=== PATIENT | female | born 1990 | race African-American/Black ===

== ENCOUNTER 2016-08-15 10:44 | Outpatient (CLI) | payer MEDICAID ==
[2016-08-15] MEDS ORDERED: LACTATED RINGERS 500 ML IV ONE (10:47)
[2016-08-15 11:29] VITALS: BP 101/62
== END 2016-08-15 11:33 | disposition home or self-care (01) ==
LOC: TRG 10:44
PROVIDERS: ATTEND Obstetrics & Gynecology
DX: O47.03 False labor before 37 completed weeks of gestation, third trimester (principal); Z3A.36 36 weeks gestation of pregnancy
CPT/HCPCS: 59025; J7120

== ENCOUNTER 2016-09-04 10:26 | Inpatient (IN) | payer MEDICAID ==
[2016-09-04 11:28] LABS: Hematocrit 36.7 % (30.3-42.9); Hemoglobin 11.4 gm/dl (10.1-14.3); Mean Corpuscular HGB Conc 31 % (30-34); Mean Corpuscular Volume 79 fl (79-97); Platelet Count 202 K/mm3 (140-440); Red Blood Count 4.68 M/mm3 (3.65-5.03); White Blood Count 9.4 K/mm3 (4.5-11.0)
[2016-09-04] MEDS ORDERED: FLUARIX QUAD 2016-2017(36 MOS+) IM ONE (11:28)
[2016-09-04] MEDS ORDERED: BRETHINE IVP PRN (11:39)
[2016-09-04] MEDS ORDERED: ZOFRAN IV PRN (11:39)
[2016-09-04] MEDS ORDERED: XYLOCAINE 2% INFILTRATI ONE (11:39)
[2016-09-04] MEDS ORDERED: PHENERGAN PO PRN (11:39)
[2016-09-04] MEDS ORDERED: BRETHINE SUB-Q PRN (11:39)
[2016-09-04] MEDS ORDERED: ePHEDrine SULFATE IV PRN ×2 (11:39→19:14)
[2016-09-04] MEDS ORDERED: MINERAL OIL PO PRN (11:39)
[2016-09-04] MEDS ORDERED: NARCAN 0.4 MG/1 ML IV PRN (11:39)
[2016-09-04 11:45] LABS: Mean Corpuscular Hemoglobin 24 pg (28-32); Red Cell Distribution Width 21.2 % (13.2-15.2)
[2016-09-04] MEDS ORDERED: PITOCin/NS 30 UNIT/500ML 30 UNITS/500 ML BAG IV SCH (12:00)
[2016-09-04] MEDS ORDERED: PITOCin/NS 20 UNIT/1000ML DRIP 20 UNITS/1,000 ML BAG IV SCH (12:00)
--- NOTE | 2016-09-04 12:44 | History and Physical Report ---
History of Present Illness Date of examination: 09/04/16 Date of admission: 09/04/16 11:38 Chief complaint: leaking clear fluid since this am at 6 am History of present illness: This is a 26 yo at 38+6 weeks came into l and d for leaking grossly ruptured. course Rubella non imm anemia -on iron tabs s<d 13% 1% femur lag nl fluid marginal cord insertion labs; O+ antib neg h/h 10.4/33.5 pap nl rubleea non imm rpr neg hiv neg hep neg hsv2 neg plt 257 sickle nuris neg chlam neg msafp too late h/h 9.6/31.6 DM 118 US 06/06/16 seaman EGA 26 vertex anterior grade 2 nl anatomy US 12/02/17 seaman EGA 34 EFW 1825 vertex anterior placenta RPR NR nuris neg chlam neg BS neg US 08/22/16 seaman EGa 37 weeks EFW 2481 11% SHELIA 8.79 BPP 8/8 Past History Past Medical History: no pertinent history Past Surgical History: no surgical history Social history: single, . denies: smoking, alcohol abuse, prescription drug abuse - Obstetrical History Expected Date of Delivery: 09/12/16 Actual Gestation: 38 Week(s) 6 Day(s) : 1 Para: 0 Hx # Term Pregnancies: 0 Number of Pregnancies: 0 Spontaneous Abortions: 0 Induced : 0 Number of Living Children: 0 Medications and Allergies Allergies Allergy/AdvReac Type Severity Reaction Status Date / Time No Known Allergies Allergy Verified 08/24/16 15:22 Active Meds: Active Medications Fentanyl (Sublimaze) 100 mcg IV Q2H PRN PRN Reason: Labor Pain Lactated Ringer's (Lactated Ringers) 1,000 mls @ 125 mls/hr IV DIRECT PAULA Oxytocin/Sodium Chloride (Pitocin/Ns 20 Unit/1000ml Drip) 20 units in 1,000 mls @ 125 mls/hr IV DIRECT PAULA Oxytocin/Sodium Chloride (Pitocin/Ns 30 Unit/500ml) 30 units in 500 mls @ 1 mls /hr IV TITR PAULA; 1 MILLIUNITS/MIN PRN Reason: Protocol Oxytocin/Sodium Chloride (Pitocin/Ns 30 Unit/500ml) 30 units in 500 mls @ 0 mls /hr IV TITR PAULA; As Directed PRN Reason: Protocol Mineral Oil (Mineral Oil) 30 ml PO QHS PRN PRN Reason: Constipation Naloxone HCl (Narcan 0.4 Mg/1 Ml) 0.1 mg IV Q2MIN PRN PRN Reason: Res Rate </= 8 or 02 SAT < 92% Ondansetron HCl (Zofran) 4 mg IV Q8H PRN PRN Reason: Nausea And Vomiting Promethazine HCl (Phenergan) 25 mg PO Q6H PRN PRN Reason: Nausea And Vomiting Review of Systems All systems: negative Breasts: deferred Genitourinary: deferred, leakage of fluid, no vaginal bleeding, no pelvic pain Rectal Exam: deferred - Vital Signs Vital signs: Vital Signs Pulse BP 83 113/65 09/04/16 10:43 09/04/16 10:43 Temp Pulse Resp BP Pulse Ox 98.9 F 88 18 107/65 09/04/16 10:44 09/04/16 12:25 09/04/16 10:44 09/04/16 12:25 - Physical Exam Breasts: Positive: normal Cardiovascular: Regular rate, Normal S1, Normal S2, No murmurs Lungs: Positive: Clear to auscultation, Normal air movement Abdomen: Positive: normal appearance, soft, normal bowel sounds Genitourinary (Female): Positive: normal external genitalia, normal perenium Vulva: both: normal Vagina: Positive: normal moisture, ulceration Cervix: Negative: lesion Uterus: Positive: normal size, normal contour Anus/Rectum: Positive: normal perianal skin, heme negative Extremities: Positive: normal Deep Tendon Reflex Grade: Normal +2 - Obstetrical Uterine Contraction Monitor Mode: Palpation Cervical Dilatation: 3 Cervical Effacement Percentage: 70 station: -2 Uterine Contraction Frequency (min): q5min Uterine Contraction Pattern: Regular Uterine Tone Measurement Phase: Contraction Uterine Contraction Intensity: Mild Results Result Diagrams: 09/04/16 11:00 Abnormal lab results 09/04/16 Range/Units 11:00 MCH 24 L (28-32) pg RDW 21.2 H (13.2-15.2) % All other labs normal. Assessment and Plan A/P HD#1 SROM clear at 6 am admit IVF labs consider augmentation with pitocin expect vaginal delivery
[2016-09-04] MEDS: LACTATED RINGERS 1,000 ML IV SCH ×3 (12:48→19:42)
[2016-09-04] MEDS: PITOCin/NS 30 UNIT/500ML 30 UNITS/500 ML BAG IV SCH ×4 (12:53→14:00)
[2016-09-04] MEDS: SUBLIMAZE IV PRN ×2 (15:26→18:18)
--- NOTE | 2016-09-04 19:14 | Anesthesia Consultation ---
Anesthesia Consult and Med Hx Date of service: 09/04/16 - Airway Anesthetic Teeth Evaluation: Good ROM Head & Neck: Adequate Mental/Hyoid Distance: Adequate Mallampati Class: Class II Intubation Access Assessment: Probably Good - Pre-Operative Health Status ASA Pre-Surgery Classification: ASA2 Proposed Anesthetic Plan: Epidural, Spinal - Pulmonary Hx Asthma: No COPD: No Hx Pneumonia: No - Cardiovascular System Hx Hypertension: No - Central Nervous System Hx Seizures: No Hx Psychiatric Problems: No - Endocrine Hx Renal Disease: No Hx End Stage Renal Disease: No Hx Hypothyroidism: No Hx Hyperthyroidism: No - Hematic Hx Anemia: Yes Hx Sickle Cell Disease: No - Other Systems Hx Alcohol Use: No
[2016-09-04] MEDS ORDERED: fentaNYL-BUPIV 2 MCG/ML-0.125% 200 MCG/100 ML BAG EPIDURAL SCH (20:00)
[2016-09-05] MEDS ORDERED: XYLOCAINE 2% INFILTRATI ONE (01:25)
--- NOTE | 2016-09-05 02:15 | Procedure Note ---
OB Delivery Note - Delivery Date of Delivery: 09/05/16 Surgeon: JANET BARCENAS Estimated blood loss: 500cc - Vaginal Delivery presentation: vertex Delivery position: OA Delivery monitor: external FHT, external uterine Route of delivery: Delivery placenta: spontaneous Delivery cord: 3 umbilical vessels Episiotomy: none Delivery laceration: 2nd degree, vaginal side wall Delivery repair: vicryl (2-0 and 3-0) Anesthesia: epidural Delivery comments: Patient was noted to be c/c/+1 and commenced to pushing. She delivered viable female at 0126 5 pounds and 3 oz in oa presentation. 2356 g. The cord was cut and clamped. The orophayrnx and nasopharynx suctioned and placed on mothers chest. The placenta delivered intact small with 3 vessel cord at 0129 . A 2nd degreee laceration repaired with 2-o vicryl in usual fashion and side wall wAs repaired with 3-0 running stitch. 500 ml blood loss. Patient tolerated procedure well. 1% lidocaine used 6cc. all lap and needle counts correct x2. - Infant A at 1 minute: 8 at 5 minutes: 9 Gender: Female
[2016-09-05] MEDS ORDERED: MILK OF MAGNESIA PO PRN (02:16)
[2016-09-05] MEDS ORDERED: TYLENOL PO PRN (02:16)
[2016-09-05] MEDS ORDERED: DERMOPLAST TP PRN (02:16)
[2016-09-05] MEDS ORDERED: TUCKS PAD TP PRN (02:16)
[2016-09-05] MEDS ORDERED: PERCOCET 5/325 PO PRN (02:16)
[2016-09-05] MEDS ORDERED: ZOFRAN IV PRN (02:16)
[2016-09-05] MEDS ORDERED: PHENERGAN PO PRN (02:16)
[2016-09-05] MEDS ORDERED: DULCOLAX PR PRN (02:16)
[2016-09-05] MEDS ORDERED: LANSINOH TP PRN (02:16)
[2016-09-05] MEDS ORDERED: BENADRYL PO PRN (02:16)
[2016-09-05] MEDS ORDERED: ANUCORT-HC PR PRN (02:16)
[2016-09-05] MEDS ORDERED: PHENERGAN PR PRN (02:16)
[2016-09-05] MEDS ORDERED: PITOCin/NS 20 UNIT/1000ML DRIP 20 UNITS/1,000 ML BAG IV SCH (03:00)
[2016-09-05] MEDS ORDERED: SODIUM CHLORIDE FLUSH SYRINGE 10 ML IV NR (03:00)
[2016-09-05] MEDS: SENOKOT S PO SCH (05:56)
[2016-09-05] MEDS: NORCO 5/325 PO PRN ×2 (08:54→21:58)
[2016-09-05] MEDS ORDERED: PRENATAL VITAMIN PO SCH (10:00)
[2016-09-05] MEDS: COLACE PO SCH ×2 (10:29→21:57)
[2016-09-05] MEDS: MOTRIN PO SCH ×2 (12:31→17:46)
[2016-09-05 14:38] LABS: Hematocrit 27.3 % (30.3-42.9); Hemoglobin 8.7 gm/dl (10.1-14.3)
[2016-09-06] MEDS: MOTRIN PO SCH ×4 (00:20→18:40)
[2016-09-06] MEDS ORDERED: M-M-R II VACCINE SUB-Q ONE (06:00)
[2016-09-06] MEDS ORDERED: BOOSTRIX IM ONE (06:00)
[2016-09-06] MEDS: SENOKOT S PO SCH ×2 (07:28→23:18)
--- NOTE | 2016-09-06 08:18 | Progress Note ---
Assessment and Plan A: PPD#1 s/p at term; Asymptomatic anemia P: Routine care. Anticipate discharge tomorrow. Subjective - Subjective Date of service: 09/06/16 Principal diagnosis: s/p at term Interval history: No overnight events. Patient reports: appetite normal, voiding normally, pain well controlled, ambulating normally, no nauseated [place]: doing well Objective - Vital Signs Latest vital signs: Vital Signs Temp Pulse Pulse Resp BP BP 09/06/16 00:20 18 09/06/16 00:00 98.3 F 73 20 109/58 09/05/16 21:58 16 09/05/16 17:38 97.9 F 82 18 118/72 09/05/16 12:00 98.6 F 92 H 20 100/60 Intake and Output 09/05/16 09/06/16 09/06/16 22:59 06:59 14:59 Intake Total 720 Output Total 400 Balance 320 Intake: Oral 720 Output: Urine 400 Void 400 Other: Total, Intake Amount 240 Total, Output Amount 400 # Voids Void 1 1 - Exam Breasts: Present: deferred Cardiovascular: Present: Regular rate Lungs: Present: Clear to auscultation Abdomen: Present: soft Uterus: Present: fundal height at umbilicus Extremities: Present: normal - Labs Labs: Abnormal lab results 09/05/16 Range/Units 14:08 Hgb 8.7 L (10.1-14.3) gm/dl Hct 27.3 L D (30.3-42.9) %
--- NOTE | 2016-09-06 08:19 | Discharge Summary ---
Providers - Providers Date of Admission: 09/04/16 11:38 Date of discharge: 09/07/16 Attending physician: JANET BARCENAS MD Primary care physician: SKYE HOLLEY Hospitalization Reason for admission: rupture of membranes Delivery: Procedure details: Spontaneous vaginal delivery; Please see delivery note. Episiotomy: none Laceration: 2nd degree Other procedures: none complications: none Discharge diagnosis: IUP at term delivered [place] baby: female Hospital course: Pt underwent induction of labor and had spontaneous vaginal delivery which she tolerated well. She met discharge criteria on PPD#2. Condition at discharge: Stable Disposition: DISCHARGED TO HOME OR SELFCARE - Discharge Diagnoses (1) Term of female Status: Acute (2) Anemia affecting Status: Acute Plan - Discharge Medications Prescriptions: Ferrous Sulfate [Feosol 325 MG tab] 325 mg PO BID #60 tablet HYDROcodone/APAP 5-325 [Stirling 5/325] 1 each PO Q6HR PRN #30 tablet PRN Reason: Pain Ibuprofen [Motrin] 600 mg PO Q6H PRN #30 tablet PRN Reason: Pain Vit-Fe Fumar-FA [ Vitamin] 1 tab PO QDAY #30 tablet - Provider Discharge Summary Activity: no sex for 6 weeks, no heavy lifting 4 weeks, no strenuous exercise Diet: routine Instructions: routine Additional instructions: [] Smoking cessation referral if applicable(refer to patient education folder for contact #) [] Refer to [facility] Booklet Call your doctor immediately for: * Fever > 100.5 * Heavy vaginal bleeding ( >1 pad per hour) * Severe persistent headache * Shortness of breath * Reddened, hot, painful area to leg or breast * Drainage or odor from incision. * Keep incision clean and dry at all times and follow doctor's instructions regarding bathing/showering - Follow up plan Follow up: JANET BARCENAS MD [Staff Physician] - 10/03/16 ( exam )
--- NOTE | 2016-09-06 10:29 | Progress Note ---
Subjective Date of service: 09/06/16 Principal diagnosis: s/p at term Interval history: 1st day after normal vaginal delivery Patient is in the bed, comfortable. Pain is well controlled with pain meds. Ambulated well. No residual neurological deficit. No anesthesia complications Objective - Constitutional Vitals: Vital Signs - 12hr 09/06/16 09/06/16 09/06/16 00:00 00:20 07:58 Temperature 98.3 F 97.8 F Pulse Rate [ 73 From Monitor] Pulse Rate [ 86 Right] Respiratory 20 18 18 Rate Blood Pressure 109/58 90/48 [Left Arm] - Labs CBC & Chem 7: 09/05/16 14:08 Labs: Abnormal lab results 09/05/16 Range/Units 14:08 Hgb 8.7 L (10.1-14.3) gm/dl Hct 27.3 L D (30.3-42.9) %
[2016-09-06] MEDS ORDERED: FLUARIX QUAD 2016-2017(36 MOS+) IM ONE (15:13)
[2016-09-06] MEDS: COLACE PO SCH (23:18)
[2016-09-07] MEDS: MOTRIN PO SCH ×2 (01:10→06:53)
[2016-09-07] MEDS: COLACE PO SCH (05:17)
[2016-09-07 10:21] VITALS: BP 102/60
== END 2016-09-07 10:20 | disposition home or self-care (01) | DRG 775 ==
LOC: TRG 10:26 → LD 11:38 → OB 09-05 05:02
PROVIDERS: ADMIT Obstetrics & Gynecology; ATTEND Obstetrics & Gynecology
PROC: 10E0XZZ Delivery of Products of Conception, External Approach (ICD-10-PCS; principal; 2016-09-05)
PROC: 0KQM0ZZ Repair Perineum Muscle, Open Approach (ICD-10-PCS; principal; 2016-09-05)
PROC: 3E0S3CZ (ICD-10-PCS; 2016-09-05)
PROC: 00HU33Z Insertion of Infusion Device into Spinal Canal, Percutaneous Approach (ICD-10-PCS; 2016-09-05)
DX: O42.02 Full-term premature rupture of membranes, onset of labor within 24 hours of rupture (principal); O99.019 Anemia complicating pregnancy, unspecified trimester; D64.9 Anemia, unspecified; O71.4 Obstetric high vaginal laceration alone; Z37.0 Single live birth; Z3A.38 38 weeks gestation of pregnancy
CPT/HCPCS: 36415; 85014; 85018; 85027; 86850; 86900; 86901; 88307; 90471; 90472; 90686; 90715; 99211; G0008; G0463; J2590; J3010; J7120